=== PATIENT | female | born 1945 | race Two or more races ===

== ENCOUNTER → 2023-09-10 13:49 | Outpatient (REF) | payer MEDICARE, OTHER, SELFPAY | LOC: DHCBS HW 13:49 | PROVIDERS: ATTENDING PHYSICIAN Internal Medicine Cardiovascular Disease; FAMILY PHYSICIAN Family Medicine | DX: R55 Syncope and collapse (principal) | CPT/HCPCS: 93306 ==

== ENCOUNTER 2023-09-18 06:21 | Inpatient (IN) | payer MEDICARE, OTHER, SELFPAY ==
--- NOTE | 2023-08-26 11:49 | CM ---
Patient is scheduled for cervical spine surgery on 09/18/23. Spoke with patient prior to surgery via telephone. Introduced role of the Orthopedic Navigator. Patient reports that she lives in an apartment at [place] (one floor, no steps). She
currently functions independently. She has access to a rolling walker and has her cervical collar. She has an emergency alert system. She has never had VN services.
Discussed orthopedic program, post surgical plans and tentative plan for patient to return home when directed by surgeon. Patient is in agreement with tentative plan and states that she will have support from [facility] staff. She states that they
will evaluate her after surgery to determine if she needs in home care or if she needs to go to [facility].
Plan: Orthopedic Navigator will remain available to assist with the care of patient and will reassess discharge needs after surgery.
[2023-08-30 13:06] VITALS: BMI 32.6
[2023-08-30 13:55] LABS: Hematocrit 44.1 % (37.0-47.0); Hemoglobin 13.9 g/dL (12.0-16.0); Mean Corp Hgb Conc. 31.5 g/dL (33.0-37.0); Mean Corpuscular Hgb 27.1 pg (27.0-31.0); Mean Platelet Volume 11.1 fL (7.4-10.4); Platelet Count 211 10^3/uL (130-400); Red Blood Cell Count 5.13 10^6/uL (4.20-5.40); Red Cell Dist. Width 15.2 % (11.5-14.5); White Blood Cell Count 5.7 10^3/uL (4.8-10.8)
[2023-08-30 14:22] LABS: ALT (SGPT) 23 U/L (0-35); AST (SGOT) 26 U/L (14-36); Albumin 4.2 g/dl (3.5-5.0); Alkaline Phosphatase 109 U/L (38-126); Blood Urea Nitrogen 20 mg/dl (7-17); Calcium 9.2 mg/dl (8.4-10.2); Carbon Dioxide 27 mmol/L (22-30); Chloride 105 mmol/L (98-107); Estimated Creatinine Clearance 60 ml/min; Glucose 100 mg/dl (70-99); Potassium 4.4 mmol/L (3.5-5.1); Sodium 137 mmol/L (135-145); Total Bilirubin 0.4 mg/dl (0.2-1.3); Total Protein 6.7 g/dl (6.3-8.2); eGFR > 60.00
[2023-08-30 14:42] VITALS: BMI 32.6
[2023-09-18] VITALS (22 sets, daily range): BP systolic 142–214; BP diastolic 64–165; PULSE 79; O2SAT 95; BMI 32.6
[2023-09-18] MEDS: CELEBREX 200 MG PO (08:07)
[2023-09-18] MEDS: TYLENOL 1000 MG PO ×2 (08:07→17:35)
[2023-09-18] MEDS: SKELAXIN 800 MG PO (08:08)
[2023-09-18] MEDS: LYRICA 150 MG PO (08:08)
[2023-09-18] MEDS: NORMOSOL-R 1000 IV ×3 (08:14→22:40)
[2023-09-18] MEDS: DILAUDID 0.25 MG IV ×3 (10:46→11:33)
--- NOTE | 2023-09-18 11:12 | SUR.PHASEI ---
No beds available, patients sister allowed visitation. Dr Muller informed of elevated BP 199/82. . Simeon Downey RN BSN.
--- NOTE | 2023-09-18 11:49 | W.PN.UPDATE ---
Update Note
Progress Note Update
Cervical stenosis w/ myelopathy s/p C5-C6 ACDF w/ Dr Brown 09/18/23
DVT prophylaxis - b/l SCDs/TEDs
Borderline hypertension - hypertensive post-op - possibly pain related
- Ensure adequate pain control
- Will add Hydralazine prn for SBP >165
Abnormal EKG; recent echo WNL
H/o syncope
Chronic SUNG
Hypothyroidism
Vitamin D deficiency
Obesity, BMI 31.61
Remote tobacco abuse
--- NOTE | 2023-09-18 13:30 | PTCARENOTE ---
Acct Num: [id number] : 1945 Patient Age: 77
Pt received from the PACU via bed Transport was w/o incident. Pt Is AAOx3, HRR, lungs are clear, resp. easy. Pt with dry dressing to anterior neck, no drainage noted. Soft cervical collar in place. Pt instructed on plan of care. Pt verbalized
understanding of instructions. Call [facility] is within reach.
Initialized on 09/18/23 13:39 - END OF NOTE
[2023-09-18] MEDS: SYNTHROID 88 MCG PO (14:53)
[2023-09-18] MEDS: ANCEF 5 IV (17:30)
[2023-09-18] MEDS: ULTRAM 50 MG PO (17:34)
[2023-09-18] MEDS: ROXICODONE 5 MG PO (20:54)
[2023-09-18] MEDS: REFRESH EYE DROPS (PF) 1 DROPS OPHTH (20:55)
[2023-09-18] MEDS: LYRICA 75 MG PO (20:56)
[2023-09-18] MEDS: COLACE 100 MG PO (20:57)
[2023-09-18] MEDS: SENOKOT 17.1999999999999993 MG PO (20:57)
[2023-09-18] MEDS: PEPCID 20 MG PO (22:39)
[2023-09-19] VITALS (7 sets, daily range): BP systolic 140–168; BP diastolic 64–82; PULSE 54–69; O2SAT 96–98
[2023-09-19] MEDS: TYLENOL 1000 MG PO ×3 (00:04→11:57)
[2023-09-19] MEDS: ULTRAM 50 MG PO ×3 (00:05→11:58)
[2023-09-19] MEDS: ANCEF 5 IV (01:08)
[2023-09-19] MEDS: APRESOLINE 5 MG IV ×2 (03:59→13:59)
[2023-09-19 06:04] LABS: Hematocrit 40.9 % (37.0-47.0); Hemoglobin 13.4 g/dL (12.0-16.0)
[2023-09-19] MEDS: SYNTHROID 88 MCG PO (06:31)
[2023-09-19 06:38] LABS: Blood Urea Nitrogen 15 mg/dl (7-17); Calcium 9.1 mg/dl (8.4-10.2); Carbon Dioxide 24 mmol/L (22-30); Chloride 105 mmol/L (98-107); Estimated Creatinine Clearance 78 ml/min; Glucose 108 mg/dl (70-99); Potassium 4.3 mmol/L (3.5-5.1); Sodium 137 mmol/L (135-145); eGFR > 60.00
--- NOTE | 2023-09-19 08:32 | CM ---
Addendum entered by Yolanda Mcqueen 09/19/23 12:08:
Patient did well in therapy and has no concerns about going home. She has updated her family.
Original Note:
Reviewed chart and held rounds with PT, OT and RN. Patient had planned cervical spine surgery with Dr. Brown on 09/17. Met with patient at bedside. Confirmed information previously obtained for assessment and discussed discharge plans. Patient
continues to plan to return home to her independent living apartment at [place] at discharge. She will have nursing and therapy through [facility] when she goes home (which was set up by [facility]).
Patient has a rolling walker at home.
Patient will use [facility] pharmacy for discharge prescriptions.
[2023-09-19] MEDS: LYRICA 75 MG PO (09:05)
[2023-09-19] MEDS: COLACE 100 MG PO (09:05)
[2023-09-19] MEDS: REFRESH EYE DROPS (PF) 1 DROPS OPHTH (09:05)
[2023-09-19] MEDS: SENOKOT 17.1999999999999993 MG PO (09:05)
[2023-09-19] MEDS: ANESTHETIC LOZENGE 1 LOZENGE PO (10:34)
--- NOTE | 2023-09-19 13:06 | W.PN.ORTHO ---
Today's Communication / Plan
-
D/c today since clinically stable, did well w/ PT and OT.
Assessment
.
Distal Motor Intact: Yes
Dressing:
Clean, dry and intact.
Assessment:
Cervical stenosis w/ myelopathy s/p C5-C6 ACDF w/ Dr Brown 09/18/23
DVT prophylaxis - b/l SCDs/TEDs
Borderline hypertension - hypertensive post-op, likely in setting of pain
- Did require Hydralazine x1 post-op; however, BPs overall stable in comparison to yesterday
- Will advise adequate pain control and further monitoring of BP at home
Abnormal EKG; recent echo WNL
H/o syncope
Chronic SUNG
Hypothyroidism
Vitamin D deficiency
Obesity, BMI 31.61
Remote tobacco abuse
Plan
.
Surgery / Date: C5-C6 ACDF w/ Dr Ordonezu 09/18/23
DVT Prophylaxis: Other (b/l SCDs/TEDS)
Activity:
Out of bed.
PT/OT
Discharge Plan: Home w/ VN
Subjective
.
.:
Patient resting comfortably in her chair this AM.
Reports sore throat and mild dysphagia 2* surgery. Denies SOB.
Incisional pain well controlled w/ current pain meds.
Eager for potential d/c today.
Vital Signs and Labs
.
Vital Signs and Labs:
Lab Results
09/19/23 05:35
09/19/23 05:35
Temp Pulse Resp BP Pulse Ox
97.9 F 52 17 162/80 95
09/19/23 12:05 09/19/23 12:05 09/19/23 12:05 09/19/23 12:05 09/19/23 12:05
Physical Exam
-
HEENT: No pallor, cyanosis, or jaundice. Throat clear.
NECK: Supple. +Cervical collar.
RESPIRATORY: Lungs clear to auscultation.
CVS: S1, S2 normal. RRR.�
ABDOMEN: Soft, non-tender. No distension. Obese.
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 Able to wiggle fingers b/l. Strength equal, no calf pain with palpation/dorsiflexion. Calves soft.
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 No focal deficits. cherry pitter grossly intact
--- NOTE | 2023-09-19 13:18 | W.DS.TRANS ---
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
-
Discharge Instructions:
Sleep Apnea Risk Intermediate
Discharge Diagnosis/Procedures Cervical stenosis with myelopathy s/p C5-C6 ACDF
with Dr Kevin 09/18/23
Diet Regular
Activity As tolerated
Additional Activity No heavy lifting >10 lbs
Driving Restrictions Not until seen by your Dr
Bathing Restrictions OK to shower in 4 days.
Other Services VN,PT
Instructions:
Stand-Alone Forms: [facility] Cervical D/C Inst.
Changes to Home Medications: Yes
Discharge Medications:
DC Medications w/original date entered in [employer]
Vitamin D3 50,000 units PO WEEKLY Supplement 08/27/23
biotin 10,000 mcg capsule 10,000 mcg PO DAILY Supplement 08/27/23
levothyroxine 88 mcg tablet (Synthroid) 88 mcg PO DAILY Thyroid 08/27/23
multivitamin 1 tab PO DAILY Supplement 08/27/23
carboxymethylcellulose sodium 0.5 % eye drops (Refresh Tears) 1 drp ophthalmic (eye) BID Eye Condition 09/18/23
Saccharomyces boulardii 250 mg capsule (Florastor) 250 mg PO BID #10 caps 09/19/23
acetaminophen 500 mg tablet (Tylenol Extra Strength) 1,000 mg (2 x 500 mg) PO Q6H #60 tabs 09/19/23
cephalexin 500 mg capsule 500 mg PO QID #20 caps 09/19/23
docusate sodium 100 mg capsule 100 mg PO BID #30 caps 09/19/23
ondansetron HCl 4 mg tablet 4 mg PO Q6H PRN nausea and vomiting #30 tabs 09/19/23
oxycodone 5 mg tablet 5 - 10 mg (1 - 2 x 5 mg) PO Q6H PRN moderate-severe pain #30 tabs 09/19/23
pregabalin 75 mg capsule (Lyrica) 75 mg PO BID #15 caps 09/19/23
sennosides 8.6 mg tablet (Senna Laxative) 17.2 mg (2 x 8.6 mg) PO BID #30 tabs 09/19/23
Home Medication Changes
Saccharomyces boulardii 250 mg capsule (Florastor) 250 mg PO BID #10 caps 09/19/23
acetaminophen 500 mg tablet (Tylenol Extra Strength) 1,000 mg (2 x 500 mg) PO Q6H #60 tabs 09/19/23
cephalexin 500 mg capsule 500 mg PO QID #20 caps 09/19/23
docusate sodium 100 mg capsule 100 mg PO BID #30 caps 09/19/23
ondansetron HCl 4 mg tablet 4 mg PO Q6H PRN nausea and vomiting #30 tabs 09/19/23
oxycodone 5 mg tablet 5 - 10 mg (1 - 2 x 5 mg) PO Q6H PRN moderate-severe pain #30 tabs 09/19/23
pregabalin 75 mg capsule (Lyrica) 75 mg PO BID #15 caps 09/19/23
sennosides 8.6 mg tablet (Senna Laxative) 17.2 mg (2 x 8.6 mg) PO BID #30 tabs 09/19/23
Pending Results: No
--- NOTE | 2023-09-19 14:28 | PTCARENOTE ---
Pt remains hypotensive (160/64) post hydralazine administration. Pt remains ok for discharge per [facility]
== END 2023-09-19 15:16 | disposition home or self-care (01) | DRG 472 ==
LOC: 2 SOUTH 06:21
PROVIDERS: Physician Assistant; ADMITTING PHYSICIAN Orthopaedic Surgery Orthopaedic Surgery of the Spine; FAMILY PHYSICIAN Family Medicine
PROC: 0RG10A0 Fusion of Cervical Vertebral Joint with Interbody Fusion Device, Anterior Approach, Anterior Column, Open Approach (ICD-10-PCS; 2023-09-18)
PROC: 0RB30ZZ Excision of Cervical Vertebral Disc, Open Approach (ICD-10-PCS; 2023-09-18)
DX: M48.02 Spinal stenosis, cervical region (principal); G95.89 Other specified diseases of spinal cord; G99.2 Myelopathy in diseases classified elsewhere; E66.9 Obesity, unspecified; Z68.31 Body mass index [BMI] 31.0-31.9, adult; E03.9 Hypothyroidism, unspecified; I97.3 Postprocedural hypertension
CPT/HCPCS: 36415; 72020; 80048; 80053; 85014; 85018; 85027; 87070; 93005; 97116; 97162; 97165; 97166; 97530; 97535; C1713